=== PATIENT | male | born 1965 | race Caucasian/White ===

== ENCOUNTER 2019-04-19 20:51 | Inpatient (IN) | payer SELFPAY ==
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
[2019-04-19 22:22] LABS: Troponin I 0.105 ng/mL (< 0.028)
[2019-04-19] MEDS ORDERED: Acetaminophen 325 MG TAB PO PRN (23:26)
[2019-04-19] MEDS ORDERED: Nicotine 21 MG PATCH TD SCH (23:59)
[2019-04-20 00:04] LABS: HBCM Index 0.05 S/CO (0-0.79); HBSAg Index 0.15 S/CO (0-0.99); Hep A IgM AB Non-Reactive (NonReactive); Hep A IgM S/CO 0.19 S/CO (0-0.79); Hep B Surf Ag Non-Reactive S/CO (NonReactive); Hep C IgG Ab Non-Reactive (NonReactive); Hep C Index 0.08 S/CO (0-0.79); Hepatitis B Core IgM Abs Non-Reactive (NonReactive)
[2019-04-20 00:10] LABS: Troponin I 0.131 ng/mL (< 0.028)
[2019-04-20] MEDS: Enoxaparin Sodium 60 MG/0.6 ML SYRINGE SC SCH (01:59)
[2019-04-20] MEDS ORDERED: Enoxaparin Sodium 60 MG/0.6 ML SYRINGE SC SCH (02:00)
[2019-04-20 02:20] LABS: Amphetamine Not Detected (NotDetected); Barbiturates Screen Not Detected (NotDetected); Benzodiazepine Screen Not Detected (NotDetected); Cocaine Metabolite Screen Not Detected (NotDetected); Medtox Control Line Valid? VALID (VALID); Medtox Reader # READER 4; Methadone Not Detected (NotDetected); Methamphetamine Not Detected (NotDetected); Opiate Screen Not Detected (NotDetected); Oxycodone Screen Not Detected (NotDetected); Phencyclidine (PCP) Not Detected (NotDetected); THC/Cannabinoid Screen Not Detected (NotDetected); Tricyclic Screen Not Detected (NotDetected)
[2019-04-20 03:32] LABS: Troponin I 0.127 ng/mL (< 0.028)
[2019-04-20 04:05] LABS: ALT (SGPT) 114 U/L (8-55); AST (SGOT) 76 U/L (5-34); Albumin 3.5 g/dL (3.5-5.0); Alkaline Phosphatase 128 U/L (40-110); Anion Gap 15 mmol/L (10-20); BUN (Urea Nitrogen) 41 mg/dL (8.4-25.7); Bilirubin, Total 0.8 mg/dL (0.2-1.2); Calc. Creatinine Clearance 62 mL/min (70-130); Calcium 8.7 mg/dL (7.8-10.44); Carbon Dioxide 26 mmol/L (22-29); Chloride 100 mmol/L (98-107); Estimated GFR-MDRD 78; Globulin 2.5 g/dL (2.4-3.5); Glucose 82 mg/dL (70-105); Potassium 4.6 mmol/L (3.5-5.1); Sodium 136 mmol/L (136-145)
[2019-04-20 04:32] LABS: Syphilis Antibody Nonreactive (Nonreactive); Syphilis Antibody Index 0.12 S/CO (<1.00 Non-Reactive)
--- NOTE | 2019-04-20 05:43 | PDOC.FM ---
- Subjective Subjective: Patient lying in bed, recently had ECHO completed this morning. States that he has some chest pain and palpitations that come/go. These symptoms have been intermittent for about the last month. Patient states he has been told in the past that he had a "bad" aortic valve but unsure of actual issue. Patient HR currently in 90s on telemetry. Denies any current complaints. - Objective Vital Signs & Weight: Vital Signs (12 hours) Temp Pulse Resp BP BP Pulse Ox 04/20/19 04:00 97.5 F L 98 16 128/61 92 L 04/20/19 00:37 97.5 F L 04/19/19 23:08 94 L 04/19/19 22:48 96.2 F L 107 H 22 H 148/65 H 94 L Weight Weight 50.439 kg Result Diagrams: 04/21/19 03:59 Phys Exam - Physical Examination Constitutional: NAD HEENT: moist MMs Neck: supple, full ROM Respiratory: no wheezing scattered rhonchi at bases irregular rhythm, borderline tachycardic, systolic murmur over aortic and mitral valves Gastrointestinal: soft, non-tender, positive bowel sounds Musculoskeletal: pulses present nonpitting edema in bilat LE Neurological: normal sensation, moves all 4 limbs Psychiatric: A&O x 3 Skin: no rash, normal turgor Dx/Plan (1) HTN (hypertension) Code(s): I10 - ESSENTIAL (PRIMARY) HYPERTENSION Status: Acute Qualifiers: Hypertension type: unspecified Qualified Code(s): I10 - Essential (primary ) hypertension (2) New onset a-fib Code(s): I48.91 - UNSPECIFIED ATRIAL FIBRILLATION Status: Acute (3) New onset of congestive heart failure Code(s): I50.9 - HEART FAILURE, UNSPECIFIED Status: Acute (4) Tobacco abuse Code(s): Z72.0 - TOBACCO USE Status: Acute (5) Transaminitis Code(s): R74.0 - NONSPEC ELEV OF LEVELS OF TRANSAMNS & LACTIC ACID DEHYDRGNSE Status: Acute - Plan Plan: Patient is a 53 y/o male with complaint of SOB & LE edema is admitted with new-onset A-Fib w/ RVR and new-onset CHF. #New-Onset A-Fib -Trops: 0.114, 0.105, 0.131, 0.127 -CK-MB: 17.3 -TSH: 1.12 -D-Dimer: 3.14 -CTA: Small Bilateral Pleural Effusions, No PEs -CXR: Mild Bibasilar Atelectasis -Carvedilol 6.25 mg PO BID -Lovenox 1 mg/kg SC BID -TTE: Pending results, initial tech report suggests severe & AR, official report pending -Consult Cardio, Dr. Delarosa #New-Onset CHF -Likely 2/2 #1 -Classic symptoms of productive cough, SOB, SMITH, PND and lower extremity edema -BNP: 3068 -CTA: Small Bilateral Pleural Effusions, No PEs -TTE pending this AM -Carvedilol 6.25 mg PO BID -Furosemide 20 mg IV BID -Strict I&Os w/ daily weights -1500 ml fluid restriction #HTN -BP: 148/65 on 04/19/19, normotensive this AM 128/61 -Continue to monitor -remote history of use of Lisinopril, will restart if BP remains elevated -vitals q4h #Transaminitis -No Hx of hepatic dysfunction - patient admits only to mild EtOH use -Physical exam remarkable for mild jaundice, scleral icterus, petechiae and cachexia -AST: 69 / ALT: 109 -> 76/114 this AM -Hepatitis Panel: Unremarkable -HIV: Negative -RPR: Negative -UDS: Unremarkable -RUQ US: Pending -ASE Protocol Initiated #Nicotine Abuse -Patient admits to smoking 1 PPD -Nicotine Patch 21 mg Daily -Monitor for signs of withdrawal #Bicuspid Aortic Valve -Likely cause of pt's murmur -Echo as above PCP: CC Code status: FULL Diet: Heart Healthy incl. Low Sodium w/ Fluid Restriction (1500 ml) Activity: Bed Rest w/ Bathroom Privileges VTE PPx: Lovenox 1 mg/kg SC BID Dispo: Stable, Patient admitted to inpatient on Telemetry Floor for further evaluation. Consult Cardiology this AM, appreciate recs. Ensure rate control, anticoagulation and await results of TTE & RUQ U/S. Expected LOS > 48H. Addendum - Attending - Attending Attestation Date/Time: 04/21/19 8885 I personally evaluated the patient and discussed the management with Dr. Rivera on 04/20. I agree with the History, Examination, Assessment and Plan documented above with any addition or exceptions noted below.
[2019-04-20] MEDS: Furosemide 20 MG/2 ML VIAL SLOW IVP SCH ×2 (06:21→13:44)
--- NOTE | 2019-04-20 07:54 | ULT ---
ULTRASOUND ABDOMEN LIMITED: (RIGHT UPPER QUADRANT) DATE: 04/20/2019 HISTORY: 53-year-old male with transaminitis FINDINGS: Gallbladder: Normal wall thickness. No gallstones or sludge identified. No pericholecystic fluid. Liver: Normal parenchymal echogenicity. Right kidney: No hydronephrosis. Pancreas: Obscured by shadowing from bowel gas. Common duct caliber: 5 mm. IMPRESSION: 1) no pathology identified. 2) pancreas not visualized.
[2019-04-20] MEDS: Aspirin Chewable 81 MG TAB PO SCH (09:10)
[2019-04-20] MEDS: Carvedilol 6.25 MG TAB PO SCH ×2 (09:10→17:18)
[2019-04-20] MEDS: Famotidine 20 MG TAB PO SCH ×2 (09:10→20:18)
[2019-04-20 09:26] VITALS: BMI 15.6
--- NOTE | 2019-04-20 15:46 | CON ---
DATE OF CONSULTATION: 04/20/2019 PRIMARY CAGE MAKER MACHINE: Dr. Victor Manuel Schulz at [facility]. REASON FOR CONSULTATION: Heart failure. HISTORY OF PRESENT ILLNESS: Mr. Carmen is a 53-year-old white gentleman who comes to the hospital for increased shortness of breath. He states for the last month he has been slowly accumulating fluid. He has been having a lot more PND and orthopnea. He states he ran out of his medications about 2 days ago. The shortness of breath got to the point where he could not sleep at night and it was really severe, so he decided to come in for evaluation. He was found to have an elevated BNP, so Cardiology is being consulted for possible heart failure. He sees Dr. Schulz for apparently what appears to be a bicuspid aortic valve and aortic stenosis. He was last seen about 6 months ago and he was told that he did not need anything done at this time, but eventually was going to need something to be done about that valve. He denies any chest pain, tightness, or pressure. Only this shortness of breath. He has been given IV diuresis and has been urinating quite a bit. He states that he continues to feel short of breath though. PAST MEDICAL HISTORY: 1. Hypertension. 2. History of bicuspid aortic valve with stenosis and some level of regurgitation. 3. History of atrial fibrillation. He was told by Dr. Schulz in the past that he had atrial fibrillation. He does not remember being told that he needed blood thinners. PAST SURGICAL HISTORY: None. FAMILY HISTORY: No early coronary artery disease. SOCIAL HISTORY: He smokes a pack a day. Drinks about 3 beers every night. Marijuana use in the past. He is a truck driver instructor. REVIEW OF SYSTEMS: A 12-point review of systems was done and was all negative unless stated in the history of present illness. OUTPATIENT MEDICATIONS: He does not remember any of the name of the medications. He just knows there was a medication that would keep his blood pressure down and he ran out of this medication recently. ALLERGIES: NO KNOWN DRUG ALLERGIES. PHYSICAL EXAMINATION: VITAL SIGNS: Temperature 97.3, pulse 87, respiratory rate 20, saturating 99% on room air, blood pressure 111/56. HEENT: Normocephalic and atraumatic. NECK: Supple. LUNGS: Have reduced breath sounds bilaterally. CARDIOVASCULAR: S1 and S2. There is a grade 3/6 systolic murmur at the right upper sternal border. ABDOMEN: Soft. Positive bowel sounds. EXTREMITIES: No edema. SKIN: Warm and dry. LABORATORY DATA: Sodium 136, potassium 4.6, normal BUN and creatinine, AST 76, ALT 114, alkaline phosphatase 128. Troponin was in the indeterminate range at 0.10, 0.13, and 0.12. Albumin of 3.5. Normal TSH. Urine drug screen was completely negative. Serologies for hepatitis and syphilis were all negative. Abdominal ultrasound performed yesterday showed no pathology identified, but the pancreas was not well visualized, but he is not giving any abdominal pain history. Echocardiogram done today was reviewed showed an EF of 40% to 45%. His aortic valve is heavily calcified with moderate to severe aortic insufficiency and moderate to severe aortic stenosis with aortic valve area of 0.6 cm2, the mean gradient of 25 mmHg, and the max velocity of 3.87 m/sec. He was in atrial fibrillation during the study. ASSESSMENT AND PLAN: 1. Acute on chronic systolic heart failure. 2. Moderate to severe aortic stenosis. 3. Moderate to severe aortic insufficiency. 4. Bicuspid aortic valve. 5. Chronic atrial fibrillation. 6. CHADS-VASc score of 2 for his left ventricular dysfunction and his hypertension. 7. Medication noncompliance. 8. Tobacco abuse. PLAN: 1. Continue IV diuresis. 2. He wants to be diuresed close to euvolemia. Plan is to send him back to Dr. Schulz at [facility], who has been following him for his aortic valve. This is most likely a decompensation secondary to his stenosis and reduced LV function. Thank you for letting us to participate in the care of your patient. We will follow. Job ID: [id number]
[2019-04-20] MEDS ORDERED: Nicotine 21 MG PATCH TD SCH (21:00)
[2019-04-21 04:40] LABS: ALT (SGPT) 102 U/L (8-55); AST (SGOT) 67 U/L (5-34); Albumin 3.4 g/dL (3.5-5.0); Alkaline Phosphatase 117 U/L (40-110); Anion Gap 16 mmol/L (10-20); BUN (Urea Nitrogen) 43 mg/dL (8.4-25.7); Bilirubin, Total 0.8 mg/dL (0.2-1.2); Calc. Creatinine Clearance 60 mL/min (70-130); Calcium 8.6 mg/dL (7.8-10.44); Carbon Dioxide 26 mmol/L (22-29); Chloride 98 mmol/L (98-107); Estimated GFR-MDRD 76; Globulin 2.8 g/dL (2.4-3.5); Glucose 100 mg/dL (70-105); Potassium 4.7 mmol/L (3.5-5.1); Protein, Total 6.2 g/dL (6.0-8.3); Sodium 135 mmol/L (136-145)
[2019-04-21 05:10] LABS: HIV (1/2) Antibody/Antigen Non-Reactive (NonReactive); HIV 1/2 INDEX 0.11 S/CO (<1.00)
[2019-04-21] MEDS: Furosemide 20 MG/2 ML VIAL SLOW IVP SCH (05:43)
--- NOTE | 2019-04-21 06:11 | PDOC.FM ---
- Subjective Subjective: Patient sitting up at bedside eating. Continues to cough frequently with white foamy sputum production. Continues to complain of some difficulty breathing. States that he thinks he has been having some rectal bleeding but unable to describe. Denies blood mixed in with stools. There is some red-tinged stain on his sheets that he believes is from where he had been sitting earlier. - Objective Vital Signs & Weight: Vital Signs (12 hours) Temp Pulse Resp BP Pulse Ox 04/21/19 04:00 98 F 129 H 18 129/64 96 04/21/19 00:00 98.1 F 87 20 112/55 L 95 04/20/19 19:21 97.9 F 84 20 123/56 L 94 L Weight Admit Weight 50.439 kg Weight 50.802 kg I&O: 04/19/19 04/20/19 04/21/19 06:59 06:59 06:59 Intake Total 1090 Output Total 1575 Balance -485 Result Diagrams: 04/21/19 03:59 Phys Exam - Physical Examination Constitutional: NAD HEENT: moist MMs, sclera anicteric Neck: supple, full ROM Respiratory: no wheezing Scattered rales and rhonchi present throughout. Decreased breath sounds. Irregular rhythm, normal rate. Systolic murmur over aortic & mitral areas Gastrointestinal: soft, non-tender, positive bowel sounds Musculoskeletal: pulses present trace edema in bilateral LE Neurological: normal sensation, moves all 4 limbs Psychiatric: normal affect, A&O x 3 Skin: no rash, normal turgor Dx/Plan (1) HTN (hypertension) Code(s): I10 - ESSENTIAL (PRIMARY) HYPERTENSION Status: Acute Qualifiers: Hypertension type: unspecified Qualified Code(s): I10 - Essential (primary ) hypertension (2) New onset a-fib Code(s): I48.91 - UNSPECIFIED ATRIAL FIBRILLATION Status: Acute (3) New onset of congestive heart failure Code(s): I50.9 - HEART FAILURE, UNSPECIFIED Status: Acute (4) Tobacco abuse Code(s): Z72.0 - TOBACCO USE Status: Acute (5) Transaminitis Code(s): R74.0 - NONSPEC ELEV OF LEVELS OF TRANSAMNS & LACTIC ACID DEHYDRGNSE Status: Acute - Plan Plan: Patient is a 53 y/o male with complaint of SOB & LE edema is admitted with new-onset A-Fib w/ RVR and new-onset CHF. 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 Delarosa--appreciate recs. He recommends continuing IV diuresis, will send back to Dr. Schulz at [facility] for further management once patient reaches euvolemia. -1 episode of HR 129 early this morning, spontaneously resolved prior to intervention #Acute on Chronic systolic HF -Likely 2/2 #1 -Classic symptoms of productive cough, SOB, SMITH, PND and lower extremity edema -BNP: 3068 -CTA: Small Bilateral Pleural Effusions, No PEs -TTE results above -Carvedilol 6.25 mg PO BID, increase to 12.5 PO BID today -Furosemide 20 mg IV BID, will give 1 dose 40 mg IV this AM and monitor output, continue diuresis until euvolemia -Strict I&Os w/ daily weights -1500 ml fluid restriction #HTN -BP: 148/65 on 04/19/19, normotensive this AM 129/64 -Continue to monitor -remote history of use of Lisinopril, will restart if BP remains elevated -vitals q4h #Transaminitis -No Hx of hepatic dysfunction - patient admits only to mild EtOH use -Physical exam remarkable for mild jaundice, scleral icterus, petechiae and cachexia -AST: 69 / ALT: 109 -> 76/114 on 04/20 -> 67/102 on 04/21 -Hepatitis Panel: Unremarkable -HIV: Negative -RPR: Negative -UDS: Unremarkable -RUQ US: Unremarkable -ASE Protocol Initiated #Nicotine Abuse -Patient admits to smoking 1 PPD -Nicotine Patch 21 mg Daily -Monitor for signs of withdrawal #Bicuspid Aortic Valve -Likely cause of pt's murmur -Echo as above PCP: CC Code status: FULL Diet: Heart Healthy incl. Low Sodium w/ Fluid Restriction (1500 ml) Activity: Bed Rest w/ Bathroom Privileges VTE PPx: Lovenox 1 mg/kg SC BID Dispo: Stable, Patient admitted to inpatient on Telemetry Floor. Cardiology consulted, appreciate recs. Ensure rate control, anticoagulation. Continue IV Lasix until patient reaches euvolemia. Anticipate discharge in <48 hrs. Addendum - Attending - Attending Attestation Date/Time: 04/21/19 8996 I personally evaluated the patient and discussed the management with the team. I agree with the History, Examination, Assessment and Plan documented above with any addition or exceptions noted below. Interestingly, the patient does not endorse any rectal bleeding during my interview. He is a poor informant, with a very scattered, non-linear though process and tracks conversations poorly. Will attempt to have him follow up with Dr. Schulz but also send a consultation for the cardiologists here as he seemed to indicate that he would not go back to [facility]. I discussed these things in detail with him.
[2019-04-21] MEDS ORDERED: Furosemide 40 MG/4 ML VIAL SLOW IVP SCH (09:00)
[2019-04-21] MEDS: Carvedilol 6.25 MG TAB PO SCH (09:53)
[2019-04-21] MEDS: Aspirin Chewable 81 MG TAB PO SCH (09:55)
[2019-04-21] MEDS: Famotidine 20 MG TAB PO SCH (09:55)
[2019-04-21] MEDS: Enoxaparin Sodium 60 MG/0.6 ML SYRINGE SC SCH (09:57)
[2019-04-21] MEDS ORDERED: Carvedilol 6.25 MG TAB PO SCH ×2 (10:00→17:00)
[2019-04-21 11:59] VITALS: TEMP 97.4
--- NOTE | 2019-04-21 13:09 | PDOC.CPN ---
- Subjective Date: 04/21/19 Time: 13:07 Interval history: Breathing much better. No other issues. - Review of Systems General: denies: fever/chills, weight/appetite/sleep changes, night sweats, fatigue Respiratory: denies: cough, congestion, shortness of breath, exercise intolerance Cardiovascular: denies: chest pain, palpitation, edema, paroxysmal nocturnal dyspnea, orthopnea Gastrointestinal: denies: nausea, vomiting, diarrhea, constipation, abd pain, GI bleeding Musculoskeletal: denies: pain, tenderness, stiffness, swelling, arthritis/ arthralgias Neurological: denies: numbness, syncope, seizure, weakness - Objective Allergies/Adverse Reactions: Allergies Allergy/AdvReac Type Severity Reaction Status Date / Time No Known Drug Allergies Allergy Verified 04/20/19 00:29 Visit Medications: Current Medications Acetaminophen (Tylenol) 650 mg PO Q4H PRN PRN Reason: Headache/Fever/Mild Pain (1-3) Last Admin: 04/21/19 09:56 Dose: 650 mg Aspirin (Aspirin Chewable) 81 mg PO DAILY [facility] Last Admin: 04/21/19 09:55 Dose: 81 mg Carvedilol (Coreg) 12.5 mg PO BID-[facility] Enoxaparin Sodium (Lovenox) 50 mg SC 0900,2100 [facility] Last Admin: 04/21/19 09:57 Dose: 50 mg Famotidine (Pepcid) 20 mg PO BID [facility] Last Admin: 04/21/19 09:55 Dose: 20 mg Furosemide (Lasix) 20 mg SLOW IVP 0600,1400 [facility] Last Admin: 04/21/19 05:43 Dose: 20 mg Nicotine (Nicoderm Patch) 21 mg TD 2100 [facility] Last Admin: 04/20/19 20:18 Dose: Not Given Vital Signs & Weight: Vital Signs Temp Pulse Resp BP BP Pulse Ox 04/21/19 11:58 97.4 F L 93 16 109/60 98 04/21/19 10:02 125/65 04/21/19 09:53 125/65 04/21/19 08:00 98.4 F 92 16 141/62 H 98 04/21/19 07:50 98 04/21/19 04:00 98 F 129 H 18 129/64 96 Admit Weight 111 lb 3.2 oz Weight 112 lb - Physical Exam General: alert & oriented x3 HEENT: mucus membranes moist Neck: supple neck Cardiac: irregularly regular, systolic murmur Lungs: clear to auscultation Neuro: grossly intact Abdomen: active bowel sounds Extremities: no edema Skin: clear Musculoskeletal: no pain - Labs Result Diagrams: 04/21/19 03:59 Troponin/CKMB Troponin I 0.127 ng/mL (< 0.028) H 04/20/19 02:59 - Telemetry Supraventricular conduction: atrial fibrillation - Assessment/Plan Assessment/Plan: 1. Chornic afib 2. Moderate to severe 3. Moderate to severe AI 4. Acute on chronic systolic CHF PLAN: - CHADS VASc scpore of 2 (HTN, CHF), will recommend full anticoagluation. - Continue current regimen. - Lasix at 40 mg PO dialy. - BP borderline low for an ACEI.
[2019-04-21 13:10] VITALS: BP 122/59
[2019-04-22] MEDS ORDERED: Furosemide 40 MG TAB PO SCH (07:30)
== END 2019-04-21 13:15 | disposition home or self-care (01) | DRG 308 ==
LOC: ERS 20:51 → 2SE 23:05
PROVIDERS: ADMIT Student in an Organized Health Care Education/Training Program; ATTEND Student in an Organized Health Care Education/Training Program
DX: I48.91 Unspecified atrial fibrillation (principal); I50.23 Acute on chronic systolic (congestive) heart failure; J98.11 Atelectasis; F17.200 Nicotine dependence, unspecified, uncomplicated; I11.0 Hypertensive heart disease with heart failure; F10.10 Alcohol abuse, uncomplicated; I35.0 Nonrheumatic aortic (valve) stenosis; R74.0 Nonspecific elevation of levels of transaminase and lactic acid dehydrogenase [LDH]; Z79.01 Long term (current) use of anticoagulants; Z91.14 Patient's other noncompliance with medication regimen
CPT/HCPCS: 36415; 76705; 80053; 80074; 80306; 83735; 84100; 84443; 84484; 86780; 87389; 93306; 93798; J1650; J1940